=== PATIENT | male | born 1950 | race Caucasian/White ===

== ENCOUNTER → 2018-09-30 | Outpatient (CLI) | payer OTHER ==
[~2018-09-30] MED LIST: ACET500 PO
[2018-09-30 19:29] LABS: BASOPHILS ABSOLUTE AUTO 0.03 K/mm3 (0.00-0.23); BASOPHILS PERCENT AUTO 1 % (0-2); EOSINOPHILS ABSOLUTE AUTO 0.11 K/mm3 (0.00-0.68); EOSINOPHILS PERCENT AUTO 2 % (0-6); Hematocrit 43.6 % (37.0-53.0); IMMATURE GRAN ABSOLUTE AUTO 0.03 K/mm3 (0.00-0.10); IMMATURE GRAN PERCENT AUTO 1 % (0-1); LYMPHOCYTES ABSOLUTE AUTO 1.16 K/mm3 (0.84-5.20); LYMPHOCYTES PERCENT AUTO 21 % (21-46); MONOCYTES ABSOLUTE AUTO 0.44 K/mm3 (0.16-1.47); MONOCYTES PERCENT AUTO 8 % (4-13); Mean Corpuscular HGB 29.8 pg (26.0-34.0); Mean Corpuscular HGB Conc 34.4 g/dL (31.5-36.5); Mean Corpuscular Volume 87 fL (80-100); Mean Platelet Volume 11.5 fL (9.1-12.4); NEUTROPHILS ABSOLUTE AUTO 3.69 K/mm3 (1.96-9.15); NEUTROPHILS PERCENT AUTO 68 % (41-73); Platelet Count 238 K/mm3 (150-400); RDW Coefficient Variation 12.5 % (11.7-14.2); RDW Standard Deviation 39.5 fL (35.1-46.3); Red Blood Cell Count 5.03 M/mm3 (4.30-5.90); White Blood Cell Count 5.46 K/mm3 (4.00-11.30)
[2018-09-30 20:02] LABS: Albumin, Blood 3.7 g/dL (3.4-5.0); Alk Phos 81 U/L (50-136); Anion Gap 8 mmol/L (6-16); Aspartate Aminotrans (AST/SGOT 20 U/L (12-37); Bilirubin, Total 1.2 mg/dL (0.1-1.0); Blood Urea Nitrogen 30 mg/dL (8-24); Bun/Creatinine Ratio 23.1 (12.0-20.0); CHOL/HDL RATIO 5.8; CO2, Blood 24 mmol/L (21-32); Calcium, Blood 8.7 mg/dL (8.5-10.1); Chloride, Blood 104 mmol/L (98-108); Cholesterol 216 mg/dL (50-200); Globulin, Blood 3.7 g/dL (2.2-4.0); Glomerular Filtration Rate 58 (60-); Glucose, Blood 322 mg/dL (70-99); HDL Cholesterol 37 mg/dL (>39); LDL/HDL RATIO Unable to Calculate; Low Density Lipoprotein Chol Unable to Calculate mg/dL (0-110); Potassium, Blood 4.8 mmol/L (3.5-5.5); Sodium, Blood 136 mmol/L (136-145); Total Protein, Blood 7.4 g/dL (6.4-8.2); Triglycerides 969 mg/dL (30-160); Very Low Density Lipoprot Chol Unable to Calculate mg/dL (6-32)
[2018-09-30 20:16] LABS: Alanine Aminotransfer (ALT/SGP 43 U/L (12-78)
== END | disposition home or self-care (01) ==
LOC: LAB 18:57 → LAB SHORT 18:57
DX: Z12.5 Encounter for screening for malignant neoplasm of prostate (principal); E11.21 Type 2 diabetes mellitus with diabetic nephropathy
CPT/HCPCS: 80053; 80061; 85025; G0103

== ENCOUNTER → 2019-11-09 | Outpatient (CLI) | payer OTHER ==
[2019-11-09 10:39] LABS: BASOPHILS ABSOLUTE AUTO 0.03 K/mm3 (0.00-0.23); BASOPHILS PERCENT AUTO 1 % (0-2); EOSINOPHILS PERCENT AUTO 3 % (0-6); Hematocrit 39.9 % (37.0-53.0); Hemoglobin 13.8 g/dL (13.5-17.5); IMMATURE GRAN ABSOLUTE AUTO 0.08 K/mm3 (0.00-0.10); IMMATURE GRAN PERCENT AUTO 1 % (0-1); LYMPHOCYTES ABSOLUTE AUTO 1.14 K/mm3 (0.84-5.20); LYMPHOCYTES PERCENT AUTO 19 % (21-46); MONOCYTES ABSOLUTE AUTO 0.49 K/mm3 (0.16-1.47); MONOCYTES PERCENT AUTO 8 % (4-13); Mean Corpuscular HGB 29.5 pg (26.0-34.0); Mean Corpuscular HGB Conc 34.6 g/dL (31.5-36.5); Mean Corpuscular Volume 85 fL (80-100); Mean Platelet Volume 10.7 fL (9.1-12.4); NEUTROPHILS ABSOLUTE AUTO 4.05 K/mm3 (1.96-9.15); NEUTROPHILS PERCENT AUTO 68 % (41-73); Platelet Count 207 K/mm3 (150-400); RDW Coefficient Variation 12.8 % (11.7-14.2); Red Blood Cell Count 4.68 M/mm3 (4.30-5.90); White Blood Cell Count 5.99 K/mm3 (4.00-11.30)
[2019-11-09 10:50] LABS: Albumin, Blood 3.2 g/dL (3.4-5.0); Albumin/Globulin Ratio 0.8 (0.8-1.8); Bilirubin, Direct 0.1 mg/dL (0.0-0.3); Bilirubin, Indirect 0.7 mg/dL (0.1-0.7); Bilirubin, Total 0.8 mg/dL (0.1-1.0); Bun/Creatinine Ratio 16.3 (12.0-20.0); Calcium, Blood 8.9 mg/dL (8.5-10.1); Creatinine, Blood 1.78 mg/dL (0.60-1.20); Potassium, Blood 5.2 mmol/L (3.5-5.5); Total Protein, Blood 7.2 g/dL (6.4-8.2)
== END | disposition home or self-care (01) ==
LOC: LAB SHORT 10:34 → LAB EV 10:34
PROVIDERS: Internal Medicine
DX: M79.89 Other specified soft tissue disorders (principal)
CPT/HCPCS: 80048; 80076; 85025

== ENCOUNTER → 2020-01-04 | Outpatient (CLI) | payer OTHER ==
[2020-01-04 16:07] LABS: Bun/Creatinine Ratio 19.1 (12.0-20.0); Calcium, Blood 8.8 mg/dL (8.5-10.1); Creatinine, Blood 1.36 mg/dL (0.60-1.20); Potassium, Blood 4.5 mmol/L (3.5-5.5)
== END | disposition home or self-care (01) ==
LOC: LAB EV 15:58 → LAB SHORT 15:58
PROVIDERS: Internal Medicine
DX: R07.9 Chest pain, unspecified (principal)
CPT/HCPCS: 80048; 84484

== ENCOUNTER → 2020-01-05 | Outpatient (CLI) | payer OTHER ==
[2020-01-05 10:04] LABS: Bun/Creatinine Ratio 19.5 (12.0-20.0); Calcium, Blood 8.4 mg/dL (8.5-10.1); Creatinine, Blood 1.49 mg/dL (0.60-1.20); Potassium, Blood 4.5 mmol/L (3.5-5.5)
== END | disposition home or self-care (01) ==
LOC: LAB SHORT 09:53 → LAB EV 09:53
PROVIDERS: Internal Medicine
DX: R07.9 Chest pain, unspecified (principal)
CPT/HCPCS: 80048

== ENCOUNTER → 2020-01-06 | Outpatient (CLI) | payer OTHER ==
[2020-01-06 11:33] LABS: Bun/Creatinine Ratio 25.7 (12.0-20.0); Calcium, Blood 8.3 mg/dL (8.5-10.1); Creatinine, Blood 1.44 mg/dL (0.60-1.20); Potassium, Blood 4.5 mmol/L (3.5-5.5)
== END | disposition home or self-care (01) ==
LOC: LAB SHORT 11:23 → LAB EV 11:23
PROVIDERS: Internal Medicine
DX: R07.9 Chest pain, unspecified (principal)
CPT/HCPCS: 80048

== ENCOUNTER → 2020-01-07 | Outpatient (CLI) | payer OTHER ==
[2020-01-07 12:26] LABS: Anion Gap 7 mmol/L (6-16); Blood Urea Nitrogen 37 mg/dL (8-24); Bun/Creatinine Ratio 24.2 (12.0-20.0); CO2, Blood 28 mmol/L (21-32); Calcium, Blood 8.6 mg/dL (8.5-10.1); Chloride, Blood 100 mmol/L (98-108); Creatinine, Blood 1.53 mg/dL (0.60-1.20); Glomerular Filtration Rate 45 (60-); Glucose, Blood 267 mg/dL (70-99); Potassium, Blood 4.4 mmol/L (3.5-5.5); Sodium, Blood 135 mmol/L (136-145)
[2020-01-07 12:27] LABS: Troponin I <0.017 ng/mL (0.000-0.040)
== END | disposition home or self-care (01) ==
LOC: LAB SHORT 11:52 → LAB EV 11:52
PROVIDERS: Internal Medicine
DX: R07.9 Chest pain, unspecified (principal)
CPT/HCPCS: 80048; 84484

== ENCOUNTER 2020-03-17 01:09 | Day surgery (SDC) | payer OTHER | END 2020-03-17 23:25 | disposition home or self-care (01) | LOC: WOUND 01:09 | DX: E11.622 Type 2 diabetes mellitus with other skin ulcer (principal); L97.921 Non-pressure chronic ulcer of unspecified part of left lower leg limited to breakdown of skin; L97.911 Non-pressure chronic ulcer of unspecified part of right lower leg limited to breakdown of skin; E11.59 Type 2 diabetes mellitus with other circulatory complications; E66.01 Morbid (severe) obesity due to excess calories; I87.2 Venous insufficiency (chronic) (peripheral); R60.9 Edema, unspecified; I12.9 Hypertensive chronic kidney disease with stage 1 through stage 4 chronic kidney disease, or unspecified chronic kidney disease; N18.9 Chronic kidney disease, unspecified; E11.22 Type 2 diabetes mellitus with diabetic chronic kidney disease | CPT/HCPCS: G0463 ==

== ENCOUNTER 2020-03-21 09:35 | Day surgery (SDC) | payer OTHER | END 2020-03-21 22:48 | disposition home or self-care (01) | LOC: WOUND 09:35 | DX: E11.622 Type 2 diabetes mellitus with other skin ulcer (principal); L97.821 Non-pressure chronic ulcer of other part of left lower leg limited to breakdown of skin; L97.811 Non-pressure chronic ulcer of other part of right lower leg limited to breakdown of skin; I87.2 Venous insufficiency (chronic) (peripheral); E11.59 Type 2 diabetes mellitus with other circulatory complications; I12.9 Hypertensive chronic kidney disease with stage 1 through stage 4 chronic kidney disease, or unspecified chronic kidney disease; E11.22 Type 2 diabetes mellitus with diabetic chronic kidney disease; N18.9 Chronic kidney disease, unspecified; E78.5 Hyperlipidemia, unspecified; E66.01 Morbid (severe) obesity due to excess calories; Z68.34 Body mass index [BMI] 34.0-34.9, adult; Z79.4 Long term (current) use of insulin; R60.9 Edema, unspecified | CPT/HCPCS: A9270; G0463 ==

== ENCOUNTER 2020-03-24 02:03 | Day surgery (SDC) | payer OTHER | END 2020-03-24 23:48 | disposition home or self-care (01) | LOC: WOUND 02:03 | DX: E11.622 Type 2 diabetes mellitus with other skin ulcer (principal); L97.829 Non-pressure chronic ulcer of other part of left lower leg with unspecified severity; E11.59 Type 2 diabetes mellitus with other circulatory complications; R60.9 Edema, unspecified; I87.2 Venous insufficiency (chronic) (peripheral) ==

== ENCOUNTER 2020-03-27 00:24 | Day surgery (SDC) | payer OTHER | END 2020-03-27 22:40 | disposition home or self-care (01) | LOC: WOUND 00:24 | DX: E11.622 Type 2 diabetes mellitus with other skin ulcer (principal); L97.829 Non-pressure chronic ulcer of other part of left lower leg with unspecified severity; L97.819 Non-pressure chronic ulcer of other part of right lower leg with unspecified severity; R60.9 Edema, unspecified; I87.2 Venous insufficiency (chronic) (peripheral); E11.59 Type 2 diabetes mellitus with other circulatory complications; I12.9 Hypertensive chronic kidney disease with stage 1 through stage 4 chronic kidney disease, or unspecified chronic kidney disease; E11.22 Type 2 diabetes mellitus with diabetic chronic kidney disease; N18.9 Chronic kidney disease, unspecified; E66.01 Morbid (severe) obesity due to excess calories; E78.5 Hyperlipidemia, unspecified; Z68.34 Body mass index [BMI] 34.0-34.9, adult | CPT/HCPCS: G0463 ==

== ENCOUNTER 2021-08-09 11:04 | Observation (INO) | payer OTHER ==
[~2021-08-09] VITALS: Ht 177.8 cm; Wt 116.0 kg
[2021-08-09 11:55] LABS: BASOPHILS ABSOLUTE AUTO 0.04 K/mm3 (0.00-0.23); BASOPHILS PERCENT AUTO 1 % (0-2); EOSINOPHILS ABSOLUTE AUTO 0.19 K/mm3 (0.00-0.68); EOSINOPHILS PERCENT AUTO 2 % (0-6); Hematocrit 28.5 % (37.0-53.0); Hemoglobin 9.6 g/dL (13.5-17.5); IMMATURE GRAN ABSOLUTE AUTO 0.09 K/mm3 (0.00-0.10); IMMATURE GRAN PERCENT AUTO 1 % (0-1); LYMPHOCYTES ABSOLUTE AUTO 0.85 K/mm3 (0.84-5.20); LYMPHOCYTES PERCENT AUTO 10 % (21-46); MONOCYTES ABSOLUTE AUTO 0.63 K/mm3 (0.16-1.47); MONOCYTES PERCENT AUTO 8 % (4-13); Mean Corpuscular HGB 29.9 pg (26.0-34.0); Mean Corpuscular HGB Conc 33.7 g/dL (31.5-36.5); Mean Corpuscular Volume 89 fL (80-100); Mean Platelet Volume 10.5 fL (9.1-12.4); NEUTROPHILS ABSOLUTE AUTO 6.48 K/mm3 (1.96-9.15); NEUTROPHILS PERCENT AUTO 78 % (41-73); Platelet Count 218 K/mm3 (150-400); RDW Coefficient Variation 12.5 % (11.7-14.2); RDW Standard Deviation 40.9 fL (35.1-46.3); Red Blood Cell Count 3.21 M/mm3 (4.30-5.90); White Blood Cell Count 8.28 K/mm3 (4.00-11.30)
[2021-08-09 12:31] LABS: Albumin, Blood 3.1 g/dL (3.4-5.0); Albumin/Globulin Ratio 0.9 (0.8-1.8); Bilirubin, Total 0.7 mg/dL (0.1-1.0); Bun/Creatinine Ratio 23.5 (12.0-20.0); Calcium, Blood 8.5 mg/dL (8.5-10.1); Creatinine, Blood 2.3 mg/dL (0.60-1.20); Globulin, Blood 3.5 g/dL (2.2-4.0); Potassium, Blood 6.2 mmol/L (3.5-5.5); Total Protein, Blood 6.6 g/dL (6.4-8.2)
[2021-08-09 13:05] LABS: Calcium, Blood 8.2 mg/dL (8.5-10.1); Creatinine, Blood 2.25 mg/dL (0.60-1.20); Potassium, Blood 6.6 mmol/L (3.5-5.5)
[2021-08-09 16:00] LABS: Bun/Creatinine Ratio 25.5 (12.0-20.0); Calcium, Blood 8.6 mg/dL (8.5-10.1); Creatinine, Blood 2.04 mg/dL (0.60-1.20); Potassium, Blood 6.2 mmol/L (3.5-5.5)
--- NOTE | 2021-08-09 17:30 | NUR ---
pt arrived to 343 via gurnes, able to get to bed, a/ox3, pleasant and cooperative with care, follows commands well, reports pain in his shoulders, lungs are clear, dim in bases, on r/a resp even and unlabord, no cough noted, hrr, tele ordered, has been running sr per er report, no edema noted, ppp+1, cap refill <3sec, vs stable, afebrile, iv to rac site is clear and patent, btx4, abd round soft nontender, voids without diff, skin has a laceration to left brow with five sutures, scrapes to toes vinod awad, oriented to room layout and call sytem, call light in reach.
[2021-08-09] MEDS ORDERED: DULO30 PO (17:57)
[2021-08-09] MEDS ORDERED: BUME2 PO (17:57)
[2021-08-09] MEDS ORDERED: GLIP2.5ER PO (17:58)
[2021-08-09] MEDS ORDERED: SPIR25 PO (17:58)
[2021-08-09] MEDS ORDERED: GABA300 PO (17:58)
[2021-08-09] MEDS ORDERED: METF500 PO (17:59)
[2021-08-09] MEDS ORDERED: LISI20 PO (17:59)
[2021-08-09] MEDS ORDERED: LOVA40 PO (17:59)
--- NOTE | 2021-08-10 04:48 | NUR ---
ECOMMERCE ANALYST SUMMARY ADMITTED FOR ACUTE ON CHRONIC KIDNEY DISEASE AND HYPERKALEMIA. PT IS A FULL CODE. PT HAS BEEN SINUS IN THE 70S ON TELEMETRY. HE HAS NO COMPLAINTS OF CHEST PAIN BUT REPORTS PAIN IN HIS LEFT SHOULDER, WORSE WITH MOVEMENT AND PALPATION. HE ALSO HAS PAIN IN HIS HEAD, IMPROVING WITH NORCO AND COOL CLOTH APPLICATION. PAIN AND SWELLING TO THE RIGHT KNEE, IMPROVED WITH ICE PACK. HE IS UNSTEADY ON HIS FEET BUT IS ADAMANT ON NOT USING A WALKER DESPITE BEING UNABLE TO FEEL HIS FEET FOR BALANCE. THE PATIENT HAS A LARGE LACERATION OVER THE LEFT EYEBROW WITH MULTIPLE SUTURES IN PLACE - NO SIGN OF REDNESS OR SWELLING. MORNING LAB VALUES PENDING AT THIS TIME FOR RE-EVALUATION OF POTASSIUM LEVEL.
[2021-08-10 05:24] LABS: BASOPHILS ABSOLUTE AUTO 0.03 K/mm3 (0.00-0.23); BASOPHILS PERCENT AUTO 0 % (0-2); EOSINOPHILS PERCENT AUTO 3 % (0-6); Hematocrit 27.2 % (37.0-53.0); Hemoglobin 8.9 g/dL (13.5-17.5); IMMATURE GRAN ABSOLUTE AUTO 0.03 K/mm3 (0.00-0.10); IMMATURE GRAN PERCENT AUTO 0 % (0-1); LYMPHOCYTES ABSOLUTE AUTO 1.13 K/mm3 (0.84-5.20); LYMPHOCYTES PERCENT AUTO 16 % (21-46); MONOCYTES ABSOLUTE AUTO 0.63 K/mm3 (0.16-1.47); MONOCYTES PERCENT AUTO 9 % (4-13); Mean Corpuscular HGB 29.7 pg (26.0-34.0); Mean Corpuscular HGB Conc 32.7 g/dL (31.5-36.5); Mean Corpuscular Volume 91 fL (80-100); Mean Platelet Volume 10.6 fL (9.1-12.4); NEUTROPHILS ABSOLUTE AUTO 5.19 K/mm3 (1.96-9.15); NEUTROPHILS PERCENT AUTO 72 % (41-73); Platelet Count 222 K/mm3 (150-400); RDW Coefficient Variation 12.6 % (11.7-14.2); RDW Standard Deviation 41.6 fL (35.1-46.3); White Blood Cell Count 7.21 K/mm3 (4.00-11.30)
[2021-08-10 06:06] LABS: Albumin, Blood 2.9 g/dL (3.4-5.0); Albumin/Globulin Ratio 0.9 (0.8-1.8); Bilirubin, Total 0.6 mg/dL (0.1-1.0); Bun/Creatinine Ratio 23.1 (12.0-20.0); Calcium, Blood 8.2 mg/dL (8.5-10.1); Creatinine, Blood 2.21 mg/dL (0.60-1.20); Globulin, Blood 3.4 g/dL (2.2-4.0); Potassium, Blood 5.1 mmol/L (3.5-5.5); Total Protein, Blood 6.3 g/dL (6.4-8.2)
--- NOTE | 2021-08-10 10:35 | NUR ---
Upon receiving a referral for spiritual care, I visit pt. Pt is lying in bed and verbalizing how uncomfortable he is. He explains about his fall and his medical issues. He then shares about the loss, emotional baggage (8yrs in the [employer]) and his grief over the loss of his strength and mobility. We explore pt's coping skills and resources and discuss ways to find meaning, purpose and jamel. I normalize his experience, reinforce helpful attitudes and perspectives and provide therapeutic listening, gentle extension course counselor and companionship. Patient responds well and shows signs of increased hope.
--- NOTE | 2021-08-10 14:10 | NUR ---
THIS NURSE INSTRUCTED PATIENT ON THE IMPORTANCE OF USING A WALKER WHILE WALKING TO THE BATHROOM. THE PATIENT HAS BEEN REFUSING ANY AID WHILE WALKING TO THE BATHROOM, AND REFUSES TO USE THE URINAL OR BEDSIDE COMMODE.
--- NOTE | 2021-08-10 17:10 | NUR ---
SHIFT SUMMARY PATIENT ALERT AND ORIENTED X3, ABLE TO MAKE NEEDS KNOWN AND CALLS APPROPRIATELY. PATIENT IS STUBBORN AND RESISTIVE TO FALL PREVENTIVE PRECAUTIONS. PATIENT REFUSES TO WEAR A GOWN. PATIENT REFUSED PAIN MEDS TODAY, BUT DID USE COOL WASH CLOTHES AND ICE PACKS THROUGHOUT THE DAY. PATIENT MEDICATED FOR NAUSEA X1 PATIENT STATED "IT IS PROBABLY FROM THE PAIN." PATIENT CURRENTLY HAS ONE BAG OF NS RUNNING AT 75MLS PER HOUR. NO ACUTE CHANGES. CALL LIGHT WITHIN REACH. BED IN LOWEST POSITION.
--- NOTE | 2021-08-11 05:27 | NUR ---
WATER METER READER SUMMARY ADMITTED FOR SYNCOPE. PT IS A FULL CODE. IV NS INFUSION COMPLETED THIS SHIFT. PT REPORTS SLIGHT PAIN IN THE HEAD AND RIGHT KNEE, MUCH IMPROVED SINCE YESTERDAY. HE IS A 1P SBA WITH FWW; PT NEEDS ENCOURAGEMENT TO USE WALKER TO AMBULATE DUE TO NEUROPATHY IN HIS LOWER LEGS. LEFT EYELID IS SWOLLEN AND BRUISED FROM THE LACERATION ABOVE THE EYEBROW. PT IS REQUESTING TO GO HOME TODAY.
[2021-08-11 05:53] LABS: BASOPHILS ABSOLUTE AUTO 0.03 K/mm3 (0.00-0.23); BASOPHILS PERCENT AUTO 1 % (0-2); EOSINOPHILS ABSOLUTE AUTO 0.23 K/mm3 (0.00-0.68); EOSINOPHILS PERCENT AUTO 4 % (0-6); Hematocrit 27.8 % (37.0-53.0); Hemoglobin 9.2 g/dL (13.5-17.5); IMMATURE GRAN ABSOLUTE AUTO 0.02 K/mm3 (0.00-0.10); IMMATURE GRAN PERCENT AUTO 0 % (0-1); LYMPHOCYTES ABSOLUTE AUTO 1.03 K/mm3 (0.84-5.20); LYMPHOCYTES PERCENT AUTO 18 % (21-46); MONOCYTES ABSOLUTE AUTO 0.58 K/mm3 (0.16-1.47); MONOCYTES PERCENT AUTO 10 % (4-13); Mean Corpuscular HGB 29.9 pg (26.0-34.0); Mean Corpuscular HGB Conc 33.1 g/dL (31.5-36.5); Mean Corpuscular Volume 90 fL (80-100); Mean Platelet Volume 10.5 fL (9.1-12.4); NEUTROPHILS ABSOLUTE AUTO 3.75 K/mm3 (1.96-9.15); NEUTROPHILS PERCENT AUTO 66 % (41-73); Platelet Count 208 K/mm3 (150-400); RDW Coefficient Variation 12.6 % (11.7-14.2); RDW Standard Deviation 41.5 fL (35.1-46.3); Red Blood Cell Count 3.08 M/mm3 (4.30-5.90); White Blood Cell Count 5.64 K/mm3 (4.00-11.30)
[2021-08-11 06:22] LABS: Bun/Creatinine Ratio 24.3 (12.0-20.0); Calcium, Blood 8.5 mg/dL (8.5-10.1); Creatinine, Blood 2.26 mg/dL (0.60-1.20); Potassium, Blood 5.2 mmol/L (3.5-5.5)
--- NOTE | 2021-08-11 18:27 | NUR ---
SHIFT SUMMARY PATIENT IS ALERT AND ORIENTED X4, PLEASANT AND COOPERATIVE WITH CARE. PATIENT GOT UP TO THE CHAIR FOR MOST OF THE DAY. PATIENT SAID THEY WILL TAKE A SHOWER THIS EVENING. THEY HAVE BEEN MORE AGREEABLE ABOUT USING THE WALKER TODAY. PATIENT MEDICATED X1 FOR PAIN. STILL USING THE WASH CLOTHES ON THEIR FOREHEAD NEEDED. PATIENT CALLS APPROPRIATELY, NO ACUTE CHANGES VITAL SIGNS STABLE. CALL LIGHT WITHIN REACH.
--- NOTE | 2021-08-12 04:14 | NUR ---
DAY STAFF NEED TO CLARIFY ADA MEDS W/LUDWIN AMIN BECAUSE THE PLAN OF CARE AND CURRENTLY RX'D MEDS DO NOT ALIGN. 'S PROGRESS NOTE FROM SAYS TO CONTINUE SLIDING SCALE AND LANTUS SQ BUT NEITHER ARE ORDERED AND IT SAYS TO HOLD GLIPIZIDE BUT THIS REMAINS ORDERED. CHEMBG CHECKS ALSO ARE NOT RX'D AT THIS TIME. BLOOD SUGARS HAVE REMAINED STABLE AT PRESENT BUT WILL ENSURE DAY RN IS AWARE TO FOLLOW UP.
--- NOTE | 2021-08-12 04:36 | NUR ---
SUMMARY: PT A/OX4, CALLS APPROPRIATELY TO SPECIFY NEEDS AND IS PLEASANT AND COOPERATIVE W/CARE. HE'S UP W/1PA W/FWW USE ENCOURAGED D/T RECENT FALLS R/T NEUROPATHY, NUMBNESS OF BLE'S PERSISTS. L.EYEBROW LACERATION W/SUTURES, DRIED BLOOD AND BRUISING OBSERVED. HE HAS OTHER SCATTERED EXCORIATIONS AND BRUISES TO EXT'S FROM FALLING. HE'S DENIED NEED FOR PAIN MEDS AND USED COLD COMPRESS AD AYDE FOR RELIEF OF FOREHEAD PAIN. PT REMAINS NSR ON TELEMETRY W/HR 80'S BPM. NO ACUTE CHANGES, VSS/AFEBRILE. ADA MEDS NEED CLARIFIED W/LUDWIN AMIN, SEE PREVIOUS NOTE FOR DETAILS, WILL ENSURE DAY STAFF ARE AWARE. WCTM AND REPORT TO DAY RN.
[2021-08-12 05:30] LABS: BASOPHILS ABSOLUTE AUTO 0.04 K/mm3 (0.00-0.23); BASOPHILS PERCENT AUTO 1 % (0-2); EOSINOPHILS ABSOLUTE AUTO 0.26 K/mm3 (0.00-0.68); EOSINOPHILS PERCENT AUTO 4 % (0-6); Hematocrit 25.5 % (37.0-53.0); Hemoglobin 8.6 g/dL (13.5-17.5); IMMATURE GRAN ABSOLUTE AUTO 0.04 K/mm3 (0.00-0.10); IMMATURE GRAN PERCENT AUTO 1 % (0-1); LYMPHOCYTES ABSOLUTE AUTO 1.03 K/mm3 (0.84-5.20); LYMPHOCYTES PERCENT AUTO 17 % (21-46); MONOCYTES ABSOLUTE AUTO 0.74 K/mm3 (0.16-1.47); MONOCYTES PERCENT AUTO 12 % (4-13); Mean Corpuscular HGB 30.4 pg (26.0-34.0); Mean Corpuscular HGB Conc 33.7 g/dL (31.5-36.5); Mean Corpuscular Volume 90 fL (80-100); Mean Platelet Volume 10.8 fL (9.1-12.4); NEUTROPHILS ABSOLUTE AUTO 4.05 K/mm3 (1.96-9.15); NEUTROPHILS PERCENT AUTO 66 % (41-73); Platelet Count 185 K/mm3 (150-400); RDW Coefficient Variation 12.3 % (11.7-14.2); RDW Standard Deviation 40.1 fL (35.1-46.3); Red Blood Cell Count 2.83 M/mm3 (4.30-5.90); White Blood Cell Count 6.16 K/mm3 (4.00-11.30)
[2021-08-12 06:03] LABS: Albumin, Blood 2.8 g/dL (3.4-5.0); Albumin/Globulin Ratio 0.8 (0.8-1.8); Bilirubin, Total 0.4 mg/dL (0.1-1.0); Bun/Creatinine Ratio 27.7 (12.0-20.0); Calcium, Blood 8.4 mg/dL (8.5-10.1); Creatinine, Blood 2.35 mg/dL (0.60-1.20); Globulin, Blood 3.3 g/dL (2.2-4.0); Potassium, Blood 5.2 mmol/L (3.5-5.5); Total Protein, Blood 6.1 g/dL (6.4-8.2)
--- NOTE | 2021-08-12 16:46 | NUR ---
SHIFT SUMMARY PT AxOx4. PLEASANT AND COOPERATIVE WITH CARE. FLAT AFFECT. PER SKIN FORMER, TELE RUNNING NSR AT 75. TELE DC'D PER PROVIDER ORDER. BLOOD GLUCOSE CHECKS AND INSULIN PER MED SS ORDERED. PT IN FOR VISIT, UPDATED BY DOCTOR IN THE ROOM. PT MEDICATED FOR PAIN IN SHOULDERS x1 WITH REPORTED RELIEF. VITALS REVIEWED. PT CURRENTLY SITTING UP IN CHAIR WATCHING TV. DENIES ANY NEEDS AT THIS TIME. CALL LIGHT IN REACH.
--- NOTE | 2021-08-13 03:55 | NUR ---
SUMMARY: PT A/OX4, PLEASANT AND COOPERATIVE W/CARE AND CALLS APPROPRIATELY TO SPECIFY NEEDS. HE SLEPT INTERMITTENTLY T/O NOCTE AND ENJOYED WATCHING SPORTS ON TV THIS SHIFT. PT UP W/1PA W/FWW IN ROOM AND HE SHOWERED INDEPENDENTLY W/SET UP ASSIST. HIS L.EYEBROW LACERATION AND SUTURES REMAIN SCABBED BUT APPEAR BETTER FOLLOWING SHOWER, BRUISING AND EDEMA PERSIST. EXCORIATIONS TO BLE/TOES ARE HEALING. PT RECIEVED NORCO PRN FOR TOLERABLE RELIEF OF BILAT SHOULDER PAIN THAT BEGAN POST FALL AT HOME. NO INSULIN REQUIRED PER BEN, CBG WAS 248 AT HS. NO ACUTE CHANGES, VSS/AFEBRILE. WCTM AND REPORT TO DAY RN.
[2021-08-13 05:51] LABS: BASOPHILS ABSOLUTE AUTO 0.03 K/mm3 (0.00-0.23); BASOPHILS PERCENT AUTO 1 % (0-2); EOSINOPHILS ABSOLUTE AUTO 0.22 K/mm3 (0.00-0.68); EOSINOPHILS PERCENT AUTO 4 % (0-6); Hematocrit 26.3 % (37.0-53.0); Hemoglobin 8.8 g/dL (13.5-17.5); IMMATURE GRAN ABSOLUTE AUTO 0.04 K/mm3 (0.00-0.10); IMMATURE GRAN PERCENT AUTO 1 % (0-1); LYMPHOCYTES ABSOLUTE AUTO 0.97 K/mm3 (0.84-5.20); LYMPHOCYTES PERCENT AUTO 17 % (21-46); MONOCYTES ABSOLUTE AUTO 0.52 K/mm3 (0.16-1.47); MONOCYTES PERCENT AUTO 9 % (4-13); Mean Corpuscular HGB 29.9 pg (26.0-34.0); Mean Corpuscular HGB Conc 33.5 g/dL (31.5-36.5); Mean Corpuscular Volume 90 fL (80-100); Mean Platelet Volume 10.7 fL (9.1-12.4); NEUTROPHILS ABSOLUTE AUTO 4.11 K/mm3 (1.96-9.15); NEUTROPHILS PERCENT AUTO 70 % (41-73); Platelet Count 199 K/mm3 (150-400); RDW Coefficient Variation 12.2 % (11.7-14.2); RDW Standard Deviation 39.8 fL (35.1-46.3); Red Blood Cell Count 2.94 M/mm3 (4.30-5.90); White Blood Cell Count 5.89 K/mm3 (4.00-11.30)
[2021-08-13 06:27] LABS: Bun/Creatinine Ratio 34.2 (12.0-20.0); Calcium, Blood 8.6 mg/dL (8.5-10.1); Creatinine, Blood 1.84 mg/dL (0.60-1.20); Potassium, Blood 5.1 mmol/L (3.5-5.5)
[2021-08-13] MEDS ORDERED: METO25ER PO (11:52)
[2021-08-13] MEDS ORDERED: BASAGLAR K100 UNIT/1 SC (11:52)
--- NOTE | 2021-08-13 14:47 | NUR ---
DC HOME 1405 DC'D HOME VIA W/C TO PRIVATE VEHICLE. DC INSTRUCTIONS GIVEN TO PT. ALL CONCERNS & QUESTIONS ADDRESSED. ALL PERSONAL BELONGINS SENT WITH PT.
== END 2021-08-13 14:09 | disposition home or self-care (01) ==
LOC: ER 11:04 → MEDS 15:02
PROVIDERS: Emergency Medicine; Physician Assistant; ADMIT Internal Medicine
DX: E87.5 Hyperkalemia (principal); N17.9 Acute kidney failure, unspecified; I45.2 Bifascicular block; S01.112A Laceration without foreign body of left eyelid and periocular area, initial encounter; W01.0XXA Fall on same level from slipping, tripping and stumbling without subsequent striking against object, initial encounter; I13.0 Hypertensive heart and chronic kidney disease with heart failure and stage 1 through stage 4 chronic kidney disease, or unspecified chronic kidney disease; N18.30 Chronic kidney disease, stage 3 unspecified; E11.22 Type 2 diabetes mellitus with diabetic chronic kidney disease; E11.42 Type 2 diabetes mellitus with diabetic polyneuropathy; Z79.4 Long term (current) use of insulin; I50.22 Chronic systolic (congestive) heart failure; S06.0X9A Concussion with loss of consciousness of unspecified duration, initial encounter
CPT/HCPCS: 12011; 36415; 70450; 72125; 72128; 73030; 73110; 80048; 80053; 82947; 83735; 83880; 85025; 93005; 93010; 96365-59; 99285-25; A9270; J0610; J1650; J1815; J1940; J7030; L0160

== ENCOUNTER 2021-11-15 07:48 | Inpatient (IN) | payer OTHER ==
[~2021-11-15] VITALS: Ht 177.8 cm; Wt 117.3 kg
[~2021-11-15 07:48] MED LIST changes: +BASAGLAR K100 UNIT/1 SC; +BUME2 PO; +DULO30 PO; +GABA300 PO; +GLIP2.5ER PO; +LISI20 PO; +LOVA40 PO; +METF500 PO; +METO25ER PO; +SPIR25 PO
[2021-11-15 08:39] LABS: BASOPHILS ABSOLUTE AUTO 0.03 K/mm3 (0.00-0.23); BASOPHILS PERCENT AUTO 0 % (0-2); EOSINOPHILS ABSOLUTE AUTO 0.25 K/mm3 (0.00-0.68); EOSINOPHILS PERCENT AUTO 3 % (0-6); Hematocrit 32.1 % (37.0-53.0); Hemoglobin 10.3 g/dL (13.5-17.5); IMMATURE GRAN ABSOLUTE AUTO 0.07 K/mm3 (0.00-0.10); IMMATURE GRAN PERCENT AUTO 1 % (0-1); LYMPHOCYTES ABSOLUTE AUTO 1.46 K/mm3 (0.84-5.20); LYMPHOCYTES PERCENT AUTO 20 % (21-46); MONOCYTES ABSOLUTE AUTO 0.81 K/mm3 (0.16-1.47); MONOCYTES PERCENT AUTO 11 % (4-13); Mean Corpuscular HGB 28.7 pg (26.0-34.0); Mean Corpuscular HGB Conc 32.1 g/dL (31.5-36.5); Mean Corpuscular Volume 89 fL (80-100); Mean Platelet Volume 10.6 fL (9.1-12.4); NEUTROPHILS ABSOLUTE AUTO 4.83 K/mm3 (1.96-9.15); NEUTROPHILS PERCENT AUTO 65 % (41-73); Platelet Count 218 K/mm3 (150-400); RDW Coefficient Variation 12.8 % (11.7-14.2); RDW Standard Deviation 41.9 fL (35.1-46.3); Red Blood Cell Count 3.59 M/mm3 (4.30-5.90); White Blood Cell Count 7.45 K/mm3 (4.00-11.30)
[2021-11-15 08:50] LABS: Calcium, Ionized (POC) 1.17 mmol/L (1.10-1.46); Chloride (POC) 110 mmol/L (98-108); Creatinine (POC) 2.4 mg/dL (0.8-1.3); Glucose (ISTAT POC) 208 mg/dL (70-99); Hemoglobin (POC) 9.9 g/dL (13.5-17.5); Sodium (POC) 139 mmol/L (135-148); Total CO2 (POC) 19 mmol/L (21-32)
[2021-11-15 09:17] LABS: Magnesium, Blood 1.8 mg/dL (1.6-2.4)
[2021-11-15 09:33] LABS: Albumin, Blood 2.8 g/dL (3.4-5.0); Albumin/Globulin Ratio 0.8 (0.8-1.8); Bilirubin, Total 0.6 mg/dL (0.1-1.0); Bun/Creatinine Ratio 20.2 (12.0-20.0); Calcium, Blood 8.4 mg/dL (8.5-10.1); Creatinine, Blood 2.48 mg/dL (0.60-1.20); Globulin, Blood 3.7 g/dL (2.2-4.0); Total Protein, Blood 6.5 g/dL (6.4-8.2)
--- NOTE | 2021-11-15 13:00 | NUR ---
PT ADMIT TO ICU 1: PT ARRIVED TO THE UNIT AT 1154. PT IS A&O X 4. PT HAS NO C/O CHEST PAIN AT THIS TIME, BUT IS COMPLAINING OF LEFT SHOULDER PAIN THAT IS A CHRONIC PROBLEM. LUNG SOUNDS ARE CLEAR THROUGHOUT, PT IS ON RA, AND O2 LEVELS 97<. HEART SOUNDS ARE MUFFLED; HR 70'S AND SBP 150-160'S. PT HAS HYPERACTIVE BS IN ALL FOUR QUADRANTS; ABD SOFT AND NON-TENDER. PT IS NPO IN PREP FOR AEROSPACE STRESS ENGINEER. PT HAS WARM EXTREMITEIS AND PPP IN UPPER EXTREMITIES BIALT. AND PEDAL PULSES USING DOPPLER. PT HAS REDDNESS ON BLE WITH VARIOUS WOUNDS; PT STATES THIS HAS BEEN A LONGSTANDING PROBLEM. PT HAS NEUROPATHY IN BLE THAT IS CAUSING PAIN. PT HAS BEEN USING THE URINIAL TO VOID; URINE IS CLEAR AND YELLOW. PT HAS POTASSIUM AT 6.0 AND IS RECIEVING LASIX AND KOMELA. MOST RECENT TROP LEVEL IS 2262. PT HAS SISTER, JENN, AND BROTHER, KIRAN, AT BEDSIDE; FAMILY HAS BEEN UPDATED ON PT'S STATUS AND ALL QUESTIONS HAVE BEEN ANSWERED AT THIS TIME. PLANS FOR THE PT TO GO TO THE AEROSPACE STRESS ENGINEER THIS AFTERNOON FOR STENT PLACEMENT ONCE PT'S POTASSIUM LEVELS < 5.7. WILL CONTINUE TO MONITOR THROUGHOUT THE DAY.
--- NOTE | 2021-11-15 13:17 | NUR ---
PT'S K+ @6.0, CALL TO DR. SANDOVAL, ORDER FOR LASIX AND REPEAT K+ IN 2H. REVIEWED PT'S CODE STATUS, PT REQUESTING NO INTUBATION. ORDER FOR PALLIATIVE CARE TO DISCUSS CODE STATUS AND MAKE NECESSARY CHANGES.
--- NOTE | 2021-11-15 14:47 | NUR ---
PT TO CABLE TENDER. BROTHER AT BEDSIDE, UPDATED WITH PLAN OF CARE.
--- NOTE | 2021-11-15 17:52 | NUR ---
AMANDA reviewed with pt and his brother. Pt is alert and oriented. He changed his code status to DNR with limited treatment, as he states he is not willing to be placed on a ventilator for anything, or at anytime. He does understand the conversation. AMANDA signed by Dr. Carballo. Pt c/o severe pain in his L shoulder from a fall he had in his driveway some time ago. He also states he has never had his L shoulder pain and limited rotation and ability to raise L arm. He also states his arm is frequently sending "shooting pains down my arm that I can barely tolterate. Discussed with bedside RN Jai who will also mention this injury to Dr. Webster. He states the chronic pain of his left shoulder, he is becoming "angry" and worn down. Plan to follow up with Dr. Webster regarding L shoulder. He is greatly appreciative of this.
--- NOTE | 2021-11-15 18:26 | NUR ---
SHIFT SUMMARY: PT REMAINS A&O X 4. PT BACK FROM 4TH GRADE MATH TEACHER AT 1700; ONE STENT PLACED IN THE MID LAD WITH R. RADIAL ACCESS. TR BAND PLACED AT 1651 AND ORDERS STATE FOR REMOVAL OF AIR STARTING AT 1851. SITE LOOKS GOOD WITH NO HEMATOMA PRESENT AND SLIGHT OOZING PRESENT THAT WAS THERE SINCE PLACEMENT, BUT HAS NOT PROGRESSED. PT HAS NO C/O OF PAIN. LUNG SOUNDS REMAIN CLEAR THROUHGOUT, RR 18-20, O2 LEVELS 97< AND PT ON RA. PT SBP IN THE 160'S WITH A RATE IN THE 80'S. PT DIET PROGRESSED AND RECIEVED A DINNER TRAY THIS EVENING. HYPERACTIVE BS IN ALL FOUR QUADRANTS. PT USING URINIAL TO VOID; URINE YELLOW AND CLEAR. PT AFEBRILE THIS SHIFT. PT'S , NATALYA, AT BEDSIDE WHEN PT RETURNED FROM THE 4TH GRADE MATH TEACHER; SHE WAS UPDATED ON PT'S STATUS AND ALL QUESTIONS ANSWERED AT THIS TIME. WILL CONTINUE TO MONITOR UNTIL ONCOMING NURSE ARRIVES.
[2021-11-16 02:46] LABS: Source, Urine Clean Catch
[2021-11-16 02:56] LABS: Bilirubin, Urine Neg (Neg); Blood, Urine 5+ (Neg); Glucose Qualitative, Urine 2+ (Neg); Ketones, Urine Neg (Neg); Leukocyte Esterase, Urine Neg (Neg); Nitrite, Urine Neg (Neg); Protein, Urine 4+ (Neg); Urobilinogen, Urine NORM (Normal)
[2021-11-16 03:21] LABS: BASOPHILS ABSOLUTE AUTO 0.03 K/mm3 (0.00-0.23); BASOPHILS PERCENT AUTO 0 % (0-2); EOSINOPHILS ABSOLUTE AUTO 0.15 K/mm3 (0.00-0.68); EOSINOPHILS PERCENT AUTO 2 % (0-6); Hematocrit 26.7 % (37.0-53.0); Hemoglobin 8.9 g/dL (13.5-17.5); IMMATURE GRAN ABSOLUTE AUTO 0.04 K/mm3 (0.00-0.10); IMMATURE GRAN PERCENT AUTO 1 % (0-1); LYMPHOCYTES ABSOLUTE AUTO 0.87 K/mm3 (0.84-5.20); LYMPHOCYTES PERCENT AUTO 11 % (21-46); MONOCYTES ABSOLUTE AUTO 0.58 K/mm3 (0.16-1.47); MONOCYTES PERCENT AUTO 8 % (4-13); Mean Corpuscular HGB 29.1 pg (26.0-34.0); Mean Corpuscular HGB Conc 33.3 g/dL (31.5-36.5); Mean Corpuscular Volume 87 fL (80-100); Mean Platelet Volume 10.3 fL (9.1-12.4); NEUTROPHILS ABSOLUTE AUTO 5.94 K/mm3 (1.96-9.15); NEUTROPHILS PERCENT AUTO 78 % (41-73); Platelet Count 189 K/mm3 (150-400); RDW Coefficient Variation 12.9 % (11.7-14.2); RDW Standard Deviation 41.2 fL (35.1-46.3); Red Blood Cell Count 3.06 M/mm3 (4.30-5.90); White Blood Cell Count 7.61 K/mm3 (4.00-11.30)
[2021-11-16 03:40] LABS: Lactate Dehydrogenase (Ld),Bld 185 U/L (100-240); Uric Acid, Blood 7.2 mg/dL (3.5-7.2)
[2021-11-16 03:43] LABS: Appearance, Urine Clear (Clear); Color, Urine Yellow (P-Yellow)
[2021-11-16 03:44] LABS: Bacteria Not Seen /hpf; Red Blood Cells, Urine 50-100 /hpf (0-2); Squamous Epithelial Cells Rare /hpf (Few); White Blood Cells, Urine Not Seen /hpf (0-5)
[2021-11-16 04:27] LABS: Alanine Aminotransfer (ALT/SGP 21 U/L (12-78); Albumin, Blood 2.5 g/dL (3.4-5.0); Albumin/Globulin Ratio 0.7 (0.8-1.8); Alk Phos 85 U/L (50-136); Anion Gap 6 mmol/L (6-16); Aspartate Aminotrans (AST/SGOT 31 U/L (12-37); Bilirubin, Total 0.5 mg/dL (0.1-1.0); Blood Urea Nitrogen 44 mg/dL (8-24); Bun/Creatinine Ratio 18.2 (12.0-20.0); CO2, Blood 23 mmol/L (21-32); Calcium, Blood 7.9 mg/dL (8.5-10.1); Chloride, Blood 113 mmol/L (98-108); Creatinine, Blood 2.42 mg/dL (0.60-1.20); Globulin, Blood 3.4 g/dL (2.2-4.0); Glomerular Filtration Rate 28 (60-); Glucose, Blood 170 mg/dL (70-99); Phosphorus, Blood 4.2 mg/dL (2.5-4.9); Potassium, Blood 5.6 mmol/L (3.5-5.5); Sodium, Blood 142 mmol/L (136-145); Total Protein, Blood 5.9 g/dL (6.4-8.2)
--- NOTE | 2021-11-16 05:11 | NUR ---
SHIFT SUMMARY: PT. REMAINED STABLE OVERNIGHT, SATTING 97% ON ROOM AIR. HR IN NSR IN THE 80S. BP HAS BEEN WNL AND PT. NOT COMPLAINING OF ANY CHEST PAIN AT THIS TIME. TR BAND WAS REMOVED AROUND 2200 AND PT. HAS HAD NO BLEEDING, BRUSING, OR PAIN AT THE SITE. NEPHROLOGY CAME TO BEDSIDE OVERNIGHT AND SPOKE WITH THE PATIENT. PT. ABLE TO VOID IN URINAL WITH ASSISTANCE AND HAD SOME BLOODY URINE WITH PAIN WHILE VOIDING, NEPHROLOGY AWARE AND HAS ORDERED A SCAN TO CHECK FOR KIDNEY STONES. PT. HAD A SANDWICH AND SOME WATER AND HAS NO COMPLAINTS AT THIS TIME.
--- NOTE | 2021-11-16 11:09 | NUR ---
AM NOTE: ASSUMED CARE OF PT AT 0700. PT IS A&O X 4. PT AMBUALTED TO CHAIR FROM BED AT BREAKFAST TIME; PT TOLERATED TRANSFER WELL WITH A STAND-BY ASSIST IF NEED. PT LUNG SOUNDS CLEAR THROUHGOUT ON RA; 02 LEVELS 95< AND RR 18-20. PT S1/S2 ASCULTATED WITH HR IN THE 80'S AND SBP 160'S. HYPERACTIVE BS IN ALL FOUR QUADRANTS. PT USING URNIAL FOR VOIDING; URINE YELLOW AND CLEAR. US OF KIDNETS PERFORMED THIS MORNING AT [address] ASTUDILLO TO RULE OUT KIDNEY STONES. PT HOME MEDS STARTED THIS MORNING. DR JUAREZ BY THIS MORNING TO ASSESS PT; DISCUSSION WITH PT TO STABILIZE POTASSIUM LEVELS BEFORE DISCHARGING HOME. PT STATUS CHANGE TO MED FLOOR WITH TELE PER DR JUAREZ. WILL CONTINUE TO MONITOR THROUGHOUT THE DAY.
--- NOTE | 2021-11-16 17:42 | NUR ---
SHIFT SUMMARY: NO ACUTE CHANGES THIS SHIFT. PT WAS OUT OF BED TO CHAIR MULTIPLE TIMES THROUGHOUT THE SHIFT; PT EXPRESSES WEAKNESS AND DIFFICULTY WITH PROLONGED ACTIVITY. PT EVAL AND TREATMENT ORDERED PUT IN. PT EMOTIONAL THIS SHIFT ABOUT HEALTH STATUS AND "LOSS OF DIGNITY". PT REMAINS A&O X 4. CLEAR LUNG SOUNDS THROUGHOUT WITH O2 LEVELS 97<; PT ON RA. HR IN THE 80'S AND SBP 140-160'S. PT NEEDS A URINE SAMPLE COLLECTED. PT STATUS CHANGE TO MED FLOOR WITH TELE. PT NEW RM IS MED 305; WAITING FOR IT TO BE CLEAN. WILL CONTINUE TO MONITOR UNTIL ON COMING NURSE ARRIVES.
[2021-11-17 05:01] LABS: BASOPHILS ABSOLUTE AUTO 0.02 K/mm3 (0.00-0.23); BASOPHILS PERCENT AUTO 0 % (0-2); EOSINOPHILS ABSOLUTE AUTO 0.19 K/mm3 (0.00-0.68); EOSINOPHILS PERCENT AUTO 3 % (0-6); Hematocrit 27.7 % (37.0-53.0); Hemoglobin 9.1 g/dL (13.5-17.5); IMMATURE GRAN ABSOLUTE AUTO 0.05 K/mm3 (0.00-0.10); IMMATURE GRAN PERCENT AUTO 1 % (0-1); LYMPHOCYTES ABSOLUTE AUTO 0.83 K/mm3 (0.84-5.20); LYMPHOCYTES PERCENT AUTO 13 % (21-46); MONOCYTES ABSOLUTE AUTO 0.69 K/mm3 (0.16-1.47); MONOCYTES PERCENT AUTO 11 % (4-13); Mean Corpuscular HGB Conc 32.9 g/dL (31.5-36.5); Mean Corpuscular Volume 88 fL (80-100); Mean Platelet Volume 10.8 fL (9.1-12.4); NEUTROPHILS ABSOLUTE AUTO 4.61 K/mm3 (1.96-9.15); NEUTROPHILS PERCENT AUTO 72 % (41-73); Platelet Count 187 K/mm3 (150-400); RDW Coefficient Variation 12.8 % (11.7-14.2); RDW Standard Deviation 40.8 fL (35.1-46.3); Red Blood Cell Count 3.14 M/mm3 (4.30-5.90); White Blood Cell Count 6.39 K/mm3 (4.00-11.30)
[2021-11-17 05:20] LABS: Albumin, Blood 2.5 g/dL (3.4-5.0); Anion Gap 7 mmol/L (6-16); Blood Urea Nitrogen 49 mg/dL (8-24); Bun/Creatinine Ratio 18.1 (12.0-20.0); CO2, Blood 23 mmol/L (21-32); Calcium, Blood 7.8 mg/dL (8.5-10.1); Chloride, Blood 109 mmol/L (98-108); Creatinine, Blood 2.71 mg/dL (0.60-1.20); Glomerular Filtration Rate 24 (60-); Glucose, Blood 261 mg/dL (70-99); Phosphorus, Blood 5.1 mg/dL (2.5-4.9); Potassium, Blood 5.4 mmol/L (3.5-5.5); Sodium, Blood 139 mmol/L (136-145)
--- NOTE | 2021-11-17 05:37 | NUR ---
PATIENT ALERT AND ORIENTED, MOSTLY COOPERATIVE, HAD TROUBLE SLEEPING, PATIENT ON TELE AND WAS SINUS TACH.
--- NOTE | 2021-11-17 10:39 | NUR ---
AM NOTE MR SELLERS IS A&OX4. HE DENIES CP OR SOB THIS MORNING. HE DOES HAVE CHRONIC LEFT SHOULDER PAIN THAT HE SAID IS FROM TORN ROTATOR CUFF. BLE 2+ EDEMA, REDDENED HARD SKIN WITH SMALL DRY SCABS. HE HAS CHRONIC NUMBNESS AND TINGLING TO BOTH HANDS AND FEET. AMBULATED WITH PT THIS AM.
--- NOTE | 2021-11-17 18:41 | NUR ---
SHIFT SUMMARY MR SELLERS HAS DENIED ANY CHEST PAIN OR SOB TODAY. ON TELEMETRY, SR, NO CALLS FROM INDUSTRIAL TECHNOLOGIST. PT UP INDEPENDENT IN HIS ROOM AND TO BATHROOM WITH STEADY GAIT. ACCUCHECKS 291 BEFORE LUNCH AND 310 BEFORE SUPPER, COVERED WITH SSI. PT HAS SOME FOOD FROM FAMILY TO [facility] MEALS. NUMBNESS AND TINGLING TO HANDS AND FEET. FEET ELEVATED AT REST. BED LOW, CALL LIGHT IN REACH.
[2021-11-18 05:06] LABS: BASOPHILS ABSOLUTE AUTO 0.03 K/mm3 (0.00-0.23); BASOPHILS PERCENT AUTO 1 % (0-2); EOSINOPHILS ABSOLUTE AUTO 0.24 K/mm3 (0.00-0.68); EOSINOPHILS PERCENT AUTO 4 % (0-6); Hematocrit 27.3 % (37.0-53.0); IMMATURE GRAN ABSOLUTE AUTO 0.07 K/mm3 (0.00-0.10); IMMATURE GRAN PERCENT AUTO 1 % (0-1); LYMPHOCYTES ABSOLUTE AUTO 0.97 K/mm3 (0.84-5.20); LYMPHOCYTES PERCENT AUTO 15 % (21-46); MONOCYTES ABSOLUTE AUTO 0.62 K/mm3 (0.16-1.47); MONOCYTES PERCENT AUTO 9 % (4-13); Mean Corpuscular HGB 29.2 pg (26.0-34.0); Mean Corpuscular Volume 89 fL (80-100); Mean Platelet Volume 10.6 fL (9.1-12.4); NEUTROPHILS ABSOLUTE AUTO 4.69 K/mm3 (1.96-9.15); NEUTROPHILS PERCENT AUTO 71 % (41-73); Platelet Count 191 K/mm3 (150-400); RDW Coefficient Variation 12.7 % (11.7-14.2); RDW Standard Deviation 40.7 fL (35.1-46.3); Red Blood Cell Count 3.08 M/mm3 (4.30-5.90); White Blood Cell Count 6.62 K/mm3 (4.00-11.30)
--- NOTE | 2021-11-18 05:43 | NUR ---
CIGAR HEAD PEGGER SUMMARY PT DENIES ANY EPISODES OF CHEST PAIN OR SHORTNESS OF BREATH THIS SHIFT. PT WITH CONTINUOUS PULSE OX IN PLACE AND DOES DROP TO 87% WHILE SLEEPING; PLACED ON 1L OF OXYGEN BY NC WITH IMPROVEMENT. PT SATTING 98% WHEN SITTING UP SO OXYGEN REMOVED. HE REPORTS FEELING TIRED THIS MORNING. NO ACUTE EVENTS THIS SHIFT.
[2021-11-18 05:53] LABS: Albumin, Blood 2.7 g/dL (3.4-5.0); Anion Gap 7 mmol/L (6-16); Blood Urea Nitrogen 56 mg/dL (8-24); Bun/Creatinine Ratio 19.2 (12.0-20.0); CO2, Blood 23 mmol/L (21-32); Calcium, Blood 7.9 mg/dL (8.5-10.1); Chloride, Blood 108 mmol/L (98-108); Creatinine, Blood 2.92 mg/dL (0.60-1.20); Glomerular Filtration Rate 22 (60-); Glucose, Blood 262 mg/dL (70-99); Phosphorus, Blood 5.3 mg/dL (2.5-4.9); Sodium, Blood 138 mmol/L (136-145)
--- NOTE | 2021-11-18 11:06 | NUR ---
AM NOTE MR SELLERS DENIES C/O CHEST PAIN THIS MORNING. HE SAID HE HAS BEEN HAVING SOME SOB ON AND OFF. ON CONTINUOUS PULSE OXIMETER IN THE 90S, TALKING IN FULL SENTENSES WITHOUT PROBLEMS. SEEN BY DR DAVEY THIS MORNING AND HE SAID HE DID VIDEO CALL WITH [facility] TEACHER. CONTINUES TO HAVE BILATERAL LOWER EXTREMITY REDNESS, HARD SKIN, EDEMA AND SMALL SCABS TO LEGS. REQUESTED MR RAVI TO [facility] FOR RECORD OF UOP. CALLED DR DAVEY FOR ORDER TO REMOVE TELEMETRY FOR SHOWER. NO CALLS FROM DRESS CAP MAKER. BED LOW, CALL LIGHT IN REACH.
--- NOTE | 2021-11-18 16:32 | NUR ---
SHIFT SUMMARY MR RUIZ HAS NOT HAD ANY CHEST PAIN TODAY. HE HAS CHRONIC LEFT SHOULDER PAIN WHICH HE SAID IS FROM TORN ROTATOR CUFF, PAIN REDUCED WITH REST. TALKING IN FULL SENTENCES WITH NO SOB. AMBULATING TO BATHROOM, CLEAR YELLOW URINE. LAST BP 105/80, WHICH IS A DROP FOR HIM. WILL RECHECK. NO CALLS FROM FRUIT BAR MAKER, SINUS RHYTHM. BED LOW, CALL LIGHT IN REACH,
--- NOTE | 2021-11-19 04:33 | NUR ---
SUMMARY: PT A/OX4, INDEPENDENT IN ROOM AND CALLS APPROPRIATELY TO SPECIFY NEEDS. HE USES THE URINAL AND AMBULATES TO THE BATHROOM AD AYDE. PT REPORTS SOB W/EXERTION THAT RECOVERS AT REST AND REMAINS ON 1L O2 AT HS W/CONT BIOX INTACT. PT IS NSR ON TELEMETRY AT 70'S BPM AND W/O S/S CARDIAC DISTRESS. DX TO R.RADIAL CATH SITE REMAINS C/D/I. NO ACUTE CHANGES, VSS/AFEBRILE. WCTM AND REPORT TO DAY RN.
[2021-11-19 05:04] LABS: BASOPHILS ABSOLUTE AUTO 0.04 K/mm3 (0.00-0.23); BASOPHILS PERCENT AUTO 1 % (0-2); EOSINOPHILS ABSOLUTE AUTO 0.31 K/mm3 (0.00-0.68); EOSINOPHILS PERCENT AUTO 4 % (0-6); Hematocrit 26.8 % (37.0-53.0); Hemoglobin 8.7 g/dL (13.5-17.5); IMMATURE GRAN ABSOLUTE AUTO 0.05 K/mm3 (0.00-0.10); IMMATURE GRAN PERCENT AUTO 1 % (0-1); LYMPHOCYTES ABSOLUTE AUTO 1.03 K/mm3 (0.84-5.20); LYMPHOCYTES PERCENT AUTO 15 % (21-46); MONOCYTES ABSOLUTE AUTO 0.77 K/mm3 (0.16-1.47); MONOCYTES PERCENT AUTO 11 % (4-13); Mean Corpuscular HGB 28.8 pg (26.0-34.0); Mean Corpuscular HGB Conc 32.5 g/dL (31.5-36.5); Mean Corpuscular Volume 89 fL (80-100); NEUTROPHILS ABSOLUTE AUTO 4.92 K/mm3 (1.96-9.15); NEUTROPHILS PERCENT AUTO 69 % (41-73); Platelet Count 194 K/mm3 (150-400); RDW Coefficient Variation 12.8 % (11.7-14.2); RDW Standard Deviation 41.1 fL (35.1-46.3); Red Blood Cell Count 3.02 M/mm3 (4.30-5.90); White Blood Cell Count 7.12 K/mm3 (4.00-11.30)
[2021-11-19 05:36] LABS: Albumin, Blood 2.5 g/dL (3.4-5.0); Anion Gap 7 mmol/L (6-16); Blood Urea Nitrogen 62 mg/dL (8-24); Bun/Creatinine Ratio 22.5 (12.0-20.0); CO2, Blood 23 mmol/L (21-32); Chloride, Blood 107 mmol/L (98-108); Creatinine, Blood 2.76 mg/dL (0.60-1.20); Glomerular Filtration Rate 24 (60-); Glucose, Blood 222 mg/dL (70-99); Phosphorus, Blood 5.2 mg/dL (2.5-4.9); Potassium, Blood 4.9 mmol/L (3.5-5.5); Sodium, Blood 137 mmol/L (136-145)
--- NOTE | 2021-11-19 15:16 | NUR ---
Pt laying in bed with eyes closed, wakes easily, a/ox3, cooperative with care, follows commands well, denies pain, lungs are clear in upper cuevas, dim in bases, resp even and unlabored, no cough noted, a bit winded with activity, using 1 liter at hs, hrr, tele sr per monitor, see strip, +1 edema noted to b/l low, looks like was much more, ppp +1, cap refill <3sec, vs stable afebrile, iv site is clear and patent, btx4, abd round soft nontender, voids without diff, skin c/w/d, maew, vinod, call light in reach.
[2021-11-19 16:08] LABS: A/G RATIO 0.9 (0.7-1.7); ALBUMIN 2.7 g/dL (2.9-4.4); ALPHA-1-GLOBULIN 0.3 g/dL (0.0-0.4); GAMMA GLOBULIN 0.7 g/dL (0.4-1.8); GLOBULIN, TOTAL 2.9 g/dL (2.2-3.9); M-SPIKE Not Observed g/dL (Not Observed); PROTEIN, TOTAL, SERUM 5.6 g/dL (6.0-8.5)
--- NOTE | 2021-11-19 19:01 | NUR ---
pt has had an uneventful day, no acute changes this shift. call light in reach.
[2021-11-20 04:55] LABS: BASOPHILS ABSOLUTE AUTO 0.03 K/mm3 (0.00-0.23); BASOPHILS PERCENT AUTO 0 % (0-2); EOSINOPHILS ABSOLUTE AUTO 0.27 K/mm3 (0.00-0.68); EOSINOPHILS PERCENT AUTO 4 % (0-6); Hematocrit 25.9 % (37.0-53.0); Hemoglobin 8.5 g/dL (13.5-17.5); IMMATURE GRAN PERCENT AUTO 1 % (0-1); LYMPHOCYTES ABSOLUTE AUTO 1.02 K/mm3 (0.84-5.20); LYMPHOCYTES PERCENT AUTO 14 % (21-46); MONOCYTES ABSOLUTE AUTO 0.72 K/mm3 (0.16-1.47); MONOCYTES PERCENT AUTO 10 % (4-13); Mean Corpuscular HGB 29.2 pg (26.0-34.0); Mean Corpuscular HGB Conc 32.8 g/dL (31.5-36.5); Mean Corpuscular Volume 89 fL (80-100); Mean Platelet Volume 11.1 fL (9.1-12.4); NEUTROPHILS ABSOLUTE AUTO 5.08 K/mm3 (1.96-9.15); NEUTROPHILS PERCENT AUTO 70 % (41-73); Platelet Count 199 K/mm3 (150-400); RDW Coefficient Variation 12.7 % (11.7-14.2); RDW Standard Deviation 41.5 fL (35.1-46.3); Red Blood Cell Count 2.91 M/mm3 (4.30-5.90); White Blood Cell Count 7.22 K/mm3 (4.00-11.30)
--- NOTE | 2021-11-20 04:58 | NUR ---
SUMMARY: PT A/OX4, IS INDEPENDENT IN ROOM AND CALLS APPROPRIATELY TO SPECIFY NEEDS. CBG 310 AT HS BUT PT ADMITTED TO HAVING RECENTLY EATEN STRAWBERRIES AND BLAYNE BROUGHT IN BY HIS AND SON, EDUCATION PROVIDED. PT DENIED PAIN AND ALL OTHER COMPLAINTS. VSS/AFEBRILE, NO ACUTE CHANGES. HE REMAINS NSR AT 80'S BPM ON TELEMETRY. PROBABLE D/C HOME TODAY. WCTM AND REPORT TO DAY RN.
[2021-11-20 05:16] LABS: Albumin, Blood 2.5 g/dL (3.4-5.0); Albumin/Globulin Ratio 0.7 (0.8-1.8); Bilirubin, Total 0.5 mg/dL (0.1-1.0); Bun/Creatinine Ratio 21.9 (12.0-20.0); Calcium, Blood 7.5 mg/dL (8.5-10.1); Creatinine, Blood 2.92 mg/dL (0.60-1.20); Globulin, Blood 3.4 g/dL (2.2-4.0); Potassium, Blood 4.9 mmol/L (3.5-5.5); Total Protein, Blood 5.9 g/dL (6.4-8.2)
[2021-11-20 13:10] LABS: M-SPIKE, % Not Observed % (Not Observed); PROTEIN,TOTAL,URINE 369.3 mg/dL (Not Estab.)
[2021-11-20] MEDS ORDERED: INSULANI SC (15:49)
[2021-11-20] MEDS ORDERED: ATORVASTATIN CA80 M1 PO (15:51)
[2021-11-20] MEDS ORDERED: CALC.25 PO (15:52)
[2021-11-20] MEDS ORDERED: CARV6.25 PO (15:54)
[2021-11-20] MEDS ORDERED: FERSU300 PO (15:55)
[2021-11-20] MEDS ORDERED: NITR.4SL SL (15:55)
[2021-11-20] MEDS ORDERED: LOKELMA PO (15:58)
[2021-11-20] MEDS ORDERED: TICA90TA PO (15:59)
--- NOTE | 2021-11-20 16:34 | NUR ---
PT DISCHARGED THE PT VERBALIZED UNDERSTANDING OF THE DC INSTRUCTIONS. THE PTS PRESCRIPTIONS WERE FAXED TO [facility] REQUESTED. THE PHARMACIST WENT OVER THE PTS DISCHARGE MEDICATION LIST. PT VERBALIZED UNDERSTANDING. THE PT IS AWAITING TRASPORTATION TO HOME AT THIS TIME
== END 2021-11-20 16:41 | disposition home or self-care (01) | DRG 247 ==
LOC: ER 07:48 → ICUW 08:26 → ICUE 11:00 → PCU 11:00 → ICUE 11:56 → MEDS 11-16 19:39
PROVIDERS: Emergency Medicine; Family Medicine; Internal Medicine Nephrology; ADMIT Family Medicine
PROC: 027034Z Dilation of Coronary Artery, One Artery with Drug-eluting Intraluminal Device, Percutaneous Approach (ICD-10-PCS; principal; 2021-11-15)
PROC: B2111ZZ Fluoroscopy of Multiple Coronary Arteries using Low Osmolar Contrast (ICD-10-PCS; 2021-11-15)
PROC: 4A023N7 Measurement of Cardiac Sampling and Pressure, Left Heart, Percutaneous Approach (ICD-10-PCS; 2021-11-15)
DX: I21.4 Non-ST elevation (NSTEMI) myocardial infarction (principal); N17.9 Acute kidney failure, unspecified; I50.22 Chronic systolic (congestive) heart failure; I13.0 Hypertensive heart and chronic kidney disease with heart failure and stage 1 through stage 4 chronic kidney disease, or unspecified chronic kidney disease; E11.40 Type 2 diabetes mellitus with diabetic neuropathy, unspecified; N18.30 Chronic kidney disease, stage 3 unspecified; E66.9 Obesity, unspecified; E11.22 Type 2 diabetes mellitus with diabetic chronic kidney disease; I25.10 Atherosclerotic heart disease of native coronary artery without angina pectoris; Z66 Do not resuscitate; Z79.899 Other long term (current) drug therapy; Z68.35 Body mass index [BMI] 35.0-35.9, adult; Z98.890 Other specified postprocedural states; Z79.84 Long term (current) use of oral hypoglycemic drugs
CPT/HCPCS: 36415; 71045; 76770; 76937; 80047; 80053; 80069; 81001; 82570; 82947; 83036; 83615; 83735; 83880; 84100; 84132; 84156; 84165; 84166; 84484; 84550; 85014; 85025; 85347; 86850; 86900; 86901; 92978; 93005; 93010; 93454; 94762; 96365; 96375; 97162; 97530; 99152; 99153; 99291-25; A9270; C1725; C1753; C1769; C1874; C1887; C1894; C8929; C9600; J1644; J1815; J1940; J2250; J3010; J7030; J7040; J7050; Q9957; Q9967

== ENCOUNTER 2022-05-15 16:10 | Emergency (ER) | payer OTHER ==
[~2022-05-15] VITALS: Ht 177.8 cm; Wt 115.7 kg
[~2022-05-15 16:10] MED LIST changes: +ATORVASTATIN CA80 M1 PO; +CALC.25 PO; +CARV6.25 PO; +FERSU300 PO; +INSULANI SC; +LOKELMA PO; +NITR.4SL SL; +TICA90TA PO
[2022-05-15 18:12] LABS: BASOPHILS ABSOLUTE AUTO 0.03 K/mm3 (0.00-0.23); BASOPHILS PERCENT AUTO 0 % (0-2); EOSINOPHILS PERCENT AUTO 2 % (0-6); Hematocrit 26.9 % (37.0-53.0); Hemoglobin 9.1 g/dL (13.5-17.5); IMMATURE GRAN ABSOLUTE AUTO 0.07 K/mm3 (0.00-0.10); IMMATURE GRAN PERCENT AUTO 1 % (0-1); LYMPHOCYTES ABSOLUTE AUTO 0.91 K/mm3 (0.84-5.20); LYMPHOCYTES PERCENT AUTO 10 % (21-46); MONOCYTES ABSOLUTE AUTO 0.69 K/mm3 (0.16-1.47); MONOCYTES PERCENT AUTO 8 % (4-13); Mean Corpuscular HGB 29.9 pg (26.0-34.0); Mean Corpuscular HGB Conc 33.8 g/dL (31.5-36.5); Mean Corpuscular Volume 89 fL (80-100); Mean Platelet Volume 10.1 fL (9.1-12.4); NEUTROPHILS PERCENT AUTO 79 % (41-73); Platelet Count 213 K/mm3 (150-400); RDW Coefficient Variation 13.4 % (11.7-14.2); RDW Standard Deviation 42.9 fL (35.1-46.3); Red Blood Cell Count 3.04 M/mm3 (4.30-5.90)
[2022-05-15 18:32] LABS: Creatine Kinase MB 8.8 ng/mL (0.0-3.6); Creatine Kinase MB Index 1.7 (0.0-4.0); Free Thyroxine 0.86 ng/dL (0.70-1.60)
[2022-05-15 18:35] LABS: Albumin, Blood 2.4 g/dL (3.4-5.0); Albumin/Globulin Ratio 0.7 (0.8-1.8); Bilirubin, Total 0.6 mg/dL (0.1-1.0); Bun/Creatinine Ratio 19.8 (12.0-20.0); Calcium, Blood 7.8 mg/dL (8.5-10.1); Creatinine, Blood 2.78 mg/dL (0.60-1.20); Globulin, Blood 3.5 g/dL (2.2-4.0); Potassium, Blood 4.9 mmol/L (3.5-5.5); Thyroid Stimulating Hormone 4.55 uIU/mL (0.360-4.800); Total Protein, Blood 5.9 g/dL (6.4-8.2)
[2022-05-15] MEDS ORDERED: CEPHALEXIN500 M1 PO (20:13)
== END 2022-05-15 20:24 | disposition home or self-care (01) ==
LOC: ER 16:10
PROVIDERS: Emergency Medicine
DX: S01.01XA Laceration without foreign body of scalp, initial encounter (principal); N18.9 Chronic kidney disease, unspecified; W18.09XA Striking against other object with subsequent fall, initial encounter; Z79.4 Long term (current) use of insulin; Z79.899 Other long term (current) drug therapy
CPT/HCPCS: 12002; 36415; 70450; 72125; 73030; 80053; 82550; 82553; 84439; 84443; 85025; 99284-25

== ENCOUNTER 2022-08-21 11:01 | Observation (INO) | payer OTHER ==
[~2022-08-21] VITALS: Ht 177.8 cm; Wt 81.7 kg
[~2022-08-21 11:01] MED LIST changes: +CEPHALEXIN500 M1 PO
[2022-08-21 13:21] LABS: Hematocrit 21.8 % (37.0-53.0); Hemoglobin 7.3 g/dL (13.5-17.5); Mean Corpuscular HGB 27.7 pg (26.0-34.0); Mean Corpuscular HGB Conc 33.5 g/dL (31.5-36.5); Mean Corpuscular Volume 83 fL (80-100); Mean Platelet Volume 9.8 fL (9.1-12.4); Platelet Count 288 K/mm3 (150-400); RDW Coefficient Variation 14.2 % (11.7-14.2); RDW Standard Deviation 42.5 fL (35.1-46.3); Red Blood Cell Count 2.64 M/mm3 (4.30-5.90); White Blood Cell Count 15.97 K/mm3 (4.00-11.30)
[2022-08-21 13:37] LABS: International Normalized Ratio 1.18; Prothrombin Time Results 12.3 Sec (9.7-11.5)
[2022-08-21 13:41] LABS: Albumin, Blood 1.7 g/dL (3.4-5.0); Albumin/Globulin Ratio 0.4 (0.8-1.8); Bilirubin, Direct 0.3 mg/dL (0.0-0.3); Bilirubin, Indirect 0.4 mg/dL (0.1-0.7); Bilirubin, Total 0.7 mg/dL (0.1-1.0); Bun/Creatinine Ratio 20.7 (12.0-20.0); Calcium, Blood 7.6 mg/dL (8.5-10.1); Creatinine, Blood 3.23 mg/dL (0.60-1.20); Globulin, Blood 4.2 g/dL (2.2-4.0); Magnesium, Blood 1.8 mg/dL (1.6-2.4); Phosphorus, Blood 3.6 mg/dL (2.5-4.9); Potassium, Blood 3.7 mmol/L (3.5-5.5); Total Protein, Blood 5.9 g/dL (6.4-8.2)
[2022-08-21 14:10] LABS: BAND PERCENT MAN 4 % (0-8); BASOPHILS PERCENT MAN 0 % (0-2); EOSINOPHILS PERCENT MAN 0 % (0-6); LYMPHOCYTES ABSOLUTE MAN 0.15 K/mm3 (0.84-5.20); LYMPHOCYTES PERCENT MAN 1 % (21-46); METAMYELOCYTE ABSOLUTE MAN 0.15 K/mm3 (0.00-0.00); METAMYELOCYTE PERCENT MAN 1 % (0-0); MONOCYTES ABSOLUTE MAN 0.31 K/mm3 (0.16-1.47); MONOCYTES PERCENT MAN 2 % (4-13); NEUTROPHILS ABSOLUTE MAN 15.33 K/mm3 (1.96-9.15); SEG NEUTROPHILS PERCENT MAN 92 % (41-73); TOTAL CELLS COUNTED 100
[2022-08-21 14:20] LABS: Source, Urine Straight Cath
[2022-08-21 14:55] LABS: Appearance, Urine Clear (Clear); Bilirubin, Urine Neg (Neg); Blood, Urine 2+ (Neg); Color, Urine Yellow (P-Yellow); Glucose Qualitative, Urine 3+ (Neg); Ketones, Urine 1+ (Neg); Leukocyte Esterase, Urine Neg (Neg); Nitrite, Urine Neg (Neg); Protein, Urine 4+ (Neg); Specific Gravity, Urine 1.015 (1.003-1.022); Urobilinogen, Urine NORM (Normal)
[2022-08-21 15:00] LABS: Influenza A, PCR NEGATIVE (NEGATIVE); Influenza B, PCR NEGATIVE (NEGATIVE); Resp Syncytial Virus, PCR NEGATIVE (NEGATIVE); SARS-Cov-2 (COVID-19) PCR, MMC NEGATIVE (NEGATIVE)
[2022-08-21 15:22] LABS: White Blood Cells, Urine 0-2 /hpf (0-5)
[2022-08-21 15:23] LABS: Amorphous Light (0-Heavy); Bacteria Few /hpf; Squamous Epithelial Cells Rare /hpf (Few)
[2022-08-21 17:45] VITALS: BP 136/76
--- NOTE | 2022-08-22 05:41 | NUR ---
PATIENT RESTED WELL THROUGH THE NIGHT, CALLS TO MAKE NEEDS KNOWN. TRAE N/V AND PAINT TREATED PER MAY THIS MORNING. PATIENT HAD A BAG OF OLD FAST FOOD THAT HE WAS EATING, EDUCATED PATIENT ON SAFE FOOD HANDLING, AND TOSSED THE REST. LUNGS ARE CLEAR BUT DIM, 1X ASSIST WITH FWW, EDEMA TO BLE, LARGE BM THIS SHIFT. NO OTHER ISSUES TO REPORT.
--- NOTE | 2022-08-22 14:36 | NUR ---
DISCHARGE PT DISCHARGED HOME VIA [facility]. AT HOME. RIGHT HAND IV REMOED. PRESSURE DRESSING APPLIED. [facility] CONTACTED THEY ARE [facility] OF TRANSPORT HOME. CONTINUE POC.
== END 2022-08-22 14:35 | disposition hospice, home (50) ==
LOC: ER 11:01 → MEDS 16:29
PROVIDERS: Emergency Medicine; ADMIT Family Medicine
DX: Z51.5 Encounter for palliative care (principal); Z66 Do not resuscitate; I13.0 Hypertensive heart and chronic kidney disease with heart failure and stage 1 through stage 4 chronic kidney disease, or unspecified chronic kidney disease; E11.22 Type 2 diabetes mellitus with diabetic chronic kidney disease; N18.30 Chronic kidney disease, stage 3 unspecified; I50.22 Chronic systolic (congestive) heart failure; I25.10 Atherosclerotic heart disease of native coronary artery without angina pectoris; E11.40 Type 2 diabetes mellitus with diabetic neuropathy, unspecified; Z95.5 Presence of coronary angioplasty implant and graft; Z79.4 Long term (current) use of insulin; Z79.899 Other long term (current) drug therapy; Z20.822 Contact with and (suspected) exposure to COVID-19
CPT/HCPCS: 0241U; 36415; 71046; 80053; 81001; 82248; 83605; 83735; 84100; 84484; 85025; 85610; 85730; 87040; 87077; 87186; 93005; 93010; 93971; 96374; 96375; 99285-25; A9270; G0378; J0696; J2405